=== PATIENT | female | born 1960 | race Caucasian/White ===

== ENCOUNTER 2022-10-22 16:31 | Outpatient (CLI) | payer MEDICARE, MEDICAID, SELFPAY | END 2022-10-22 16:32 | disposition home or self-care (01) | LOC: AMB 10-24 19:09 | PROVIDERS: PCP Surgery; Visit Provider Family Medicine | DX: R45.851 Suicidal ideations (principal) ==

== ENCOUNTER 2024-09-02 18:55 | Outpatient (CLI) | payer MEDICARE, MEDICAID, SELFPAY | END 2024-09-02 18:56 | disposition home or self-care (01) | LOC: AMB 09-03 07:25 | PROVIDERS: PCP Surgery; Visit Provider Emergency Medicine | DX: R06.02 Shortness of breath (principal); R41.82 Altered mental status, unspecified | CPT/HCPCS: A0425; A0427 ==

== ENCOUNTER 2024-09-02 19:34 | Emergency (ER) | payer MEDICARE, MEDICAID, SELFPAY ==
[2024-09-02] VITALS (23 sets, daily range): BP systolic 139–163; BP diastolic 72–119; PULSE 73–115; RESP 8–56; TEMP 36.4; O2SAT 87–100; BMI 41.2
--- OUTSIDE RECORDS SUMMARY | 2024-09-02 19:35 | XMS_ITS | Continuity of Care Document ---
Author Organization [facility] Address [address] [place] [address] Phone Care Team Providers Care Chief Client Officer Name Role Phone Georgi Story Unavailable Unavailable Procedures Procedure Date ACDF - Anterior Cervical Discectomy and Fusion - PA ACDF - Additonal Level - PA PSF, Cervical (Below C2) - PA 0 PSF - Additional Level(s) - PA 20 Posterior Instrumentation, 3-6 Segments - PA Anterior Instrumentation, 2-3 Segments - PA PEEK/ Cage/ Implant, For Interbody Fusio n - PA ACDF - Anterior Cervical Discectomy and Fusion ACDF - Additonal Level(s) PSF, Cervical (Below C2) PSF - Additional Level(s) Anterior Instrumentation, 2-3 Segments A PEEK/ Cage/ Implant, For Interbody Fusio n Posterior Instrumentation, 3-6 Segments Advance Directives Directive Yes / No Effective Date File Name No Information Encounters Encounter Description Practice Location Reason(s) For Visit Diagnoses Date Provider Providers Copied on Encounter [facility] [place], [address], [place], [id number], [place] tel:[phone] [facility] No Information 0 Deisi Laureano. [facility], [address] [place] [address], [address], [place], [address], [place]. tel:[phone] Referring Provider: Rose Galindo, [facility] [address], [place], [address]. tel:[phone] [facility], [address], [place], [place], [id number], [place] tel:[phone] [facility] No Information 0 Mateo Hernandezman. [facility], [address], [place], [address], [place]. tel:[phone] Referring Provider: Rose Galindo, [facility] [address], [place], [address]. tel:[phone] Family History Family Member Type Diagnosis Age At Onset No Information Payers Payer name Insurance type Covered constitution party ID Michaela stone(s) Medicare MB [id number] Medical Assistance [facility] [id number] Social History Type Description Quantity Date Captured Comments Sex Female Smoking Status No Information Chief Complaint And Reason For Visit No Information Reason For Referral Reason For Referral No Information History Of Present Illness Encounter Date Complaint History Of Prese nt Illness No Information Functional Status Date Functional Assessmen t No Information Instructions Date Instruction Additional Infor mation No Information Assessments Type Assessment Date No Information Patient Care Teams Name Effective Dates (start - stop) Status Members No Information
--- OUTSIDE RECORDS SUMMARY | 2024-09-02 19:36 | XMS_ITS | Clinical Summary ---
Author Organization [facility] Address [place], [place] [address] Care Team Providers Care Chicken Hanger Name Role Phone Fernie Garcia MD Unavailable Christiano Bess MD Primary Care Provider Allergies Active Allergy Reactions Criticality Noted Date Comments Driss Inhibitors *Unknown 10/18/2014 Adhesive *Unknown,Rash 10/18/2014 Amlodipine Besylate *Unknown 10/18/2014 Lisinopril *Unknown 10/18/2014 Pollen Extracts *Unknown 10/18/2014 Buprenorphine-Naloxone Nausea And Vomiting,Other - Describe In Comment Field 10/26/2022 Was Loosing Her Teeth while on Suboxone Sulfa (Sulfonamide Antibiotics) Rash 10/18/2014 Sulfasalazine *Unknown 02/14/2012 Zolpidem Tartrate *Unknown 10/18/2014 Medications * This document contains information received from the source organization and may not represent a complete record from that organization. nitroglycerin (NITROSTAT) 0.4 mg sublingual tabletIndications: acute episode of anginal pain Place 1 Tablet (0.4 mg) under the tongue each time if needed for Chest Pain. 30 Tablet 10/31/2022 2:47 PM CDT 3 Active saliva stimulant comb. no.3 spryIndications:dr rivera mouth [place] 1 [place] in mouth every hour if needed (Dry mouth). 44.3 mL 3 03/09/2024 3:37 PM CDT 3 Active albuterol-ipratrop ium (DUONEB) (2.5-0.5 mg) in 3 mL NEBULIZATION solutionIndication s:chronic obstructive pulmonary disease with bronchospasms Inhale 3 mL via a nebulizer 4 times daily if needed for Shortness Of Breath or Wheezing. 180 mL 3 09/02/2023 11:52 AM LIFE ADVISOR 4 Active albuterol 0.083% (2.5 mg/3 mL) neb solutionIndication s:chronic obstructive pulmonary disease Inhale 3 mL (2.5 mg) via a nebulizer every 4 hours if needed for Shortness Of Breath. 180 mL 3 10/12/2023 4:21 PM CDT 4 Active acetaminophen (TYLENOL EXTRA STRGTH) 500 mg tabletIndications: fever,pain Take 2 Tablets (1,000 mg) by mouth three times daily. 180 Tablet 3 11/29/2023 12:43 PM CDT 4 Active albuterol HFA (PRO-AIR; VENTOLIN; PROVENTIL) 90 mcg/actuation inhalerIndications :chronic obstructive pulmonary disease Inhale 2 Puffs by mouth every 4 hours if needed for Shortness Of Breath. 8.5 g 3 12/07/2023 10:21 AM CDT 4 Active wheelchairIndicati ons:mobility As directed 1 Each one time. Indications: mobility 4 Active Walker - 4 wheelsIndications: safe mobility As directed 1 unit one time. Indications: safe mobility 4 Active morphine solutab 20 mg (HOSPICE ONLY)Indications:p ain, dyspnea Open capsule and Take 1 Tablet (20 mg) by mouth every 4 hours if needed for Pain (dyspnea). 20mg description: Pinkish tablet inside pink/clear capsule. CARDED 30 Tablet 12/19/2023 4:22 PM CDT 4 Active carvediloL (Coreg) 12.5 mg tabletIndications: hypertension Take 1 Tablet (12.5 mg) by mouth two times daily. CARDED 60 Tablet 3 12/23/2023 1:04 PM CDT 4 Active furosemide (LASIX) 40 mg tabletIndications: edema Take 1 Tablet (40 mg) by mouth once daily. CARDED 30 Tablet 3 12/23/2023 1:04 PM CDT 4 Active levothyroxine (SYNTHROID) 200 mcg tabletIndications: hypothyroidism Take 1 Tablet (200 mcg) by mouth before breakfast. CARDEd 30 Tablet 3 12/23/2023 1:04 PM CDT 4 Active melatonin 3 mg tabletIndications: insomnia Take 1 Tablet (3 mg) by mouth at bedtime. CARDED 30 Tablet 3 12/23/2023 1:04 PM CDT 4 Active ondansetron (ZOFRAN ODT) 4 mg disintegrating tabletIndications: nausea/emesis Place 1 Tablet (4 mg) on the tongue 2 times daily if needed for Nausea/Vomiti ng. 30 Tablet 3 12/23/2023 1:04 PM CDT 4 Active sennosides-docusat e (SENOKOT S) (8.6-50 mg) tabletIndications: constipation Take 1 Tablet by mouth two times daily. CARDED 60 Tablet 12/23/2023 1:04 PM CDT 4 Active nicotine (NICORETTE) 2 mg gumIndications:Tob acco dependency Chew 1 gum (2 mg) every 2 hours if needed for Nicotine Craving. 100 Each 2 4 Active morphine CONTROLLED RELEASE (MS Contin) 60 mg tabletIndications: severe chronic pain requiring long-term opioid treatment Take 1 Tablet (60 mg) by mouth two times daily. 30 Tablet 03/09/2024 3:37 PM CDT 4 Active LORazepam (ATIVAN) 1 mg tabletIndications: anxiety,dyspnea Take 1 Tablet (1 mg) by mouth two times daily. 30 Tablet 03/09/2024 3:37 PM CDT 4 Active morphine CONTROLLED RELEASE (MS Contin) 30 mg CR tabletIndications: severe chronic pain requiring long-term opioid treatment Take 1 Tablet (30 mg) by mouth two times daily. Indications: severe chronic pain requiring long-term opioid treatment 30 Tablet 03/09/2024 3:37 PM CDT 4 Active Active Problems Problem Noted Date Diagnosed Date ACP (advance care planning) 10/31/2022 Overview (12/24/2023): Patient has identified Health Care Agent(s): Yes Add Health Care Agents: Yes Health Care Agent(s): Primary Health Care Agent: Kaleigh [place] Relationship: Friend Secondary Health Care Agent: Ricky Mcrae Relationship: Friend Conservator: Relationship: Phone: Guardian: Relationship: Phone: Patient has Advance Care Plan Documents (Health Care Directive, POLST): Yes Advance Care Plan Documents: Health Care Directive and POLST Form Patient has identified Specific Treatment Preferences: Yes How have preferences been verified: verbal and POLST Specific Treatment Preferences: a.) Code Status: DNR/ Do Not Attempt Resuscitation - Allow a Natural b.) Goals of Treatment: iii. Comfort-Focused Treatment (Allow Natural ): Relieve pain and suffering through the use of any medication by any route, positioning, wound care and other measures. Use oxygen, suction and manual treatment of airway obstruction as needed for comfort. Patient prefers no transfer to hospital for life-sustaining treatments. Transfer if comfort needs cannot be met in current location. TREATMENT PLAN: Maximize comfort through symptom management. c.) Interventions and Treatments: i. Artificially Administered Nutrition and Hydration: - No artificial nutrition/hydration by tube ii. Antibiotics: - Oral antibiotics only (NO IV/IM) Encounter for admission to hospice care 10/31/19 Overview (10/31/2022): Hospice Physician Narrative Encounter for Discussion of Hospice Care Physician Chart Review: 10/30/2022 Patient: Pedrito Lanier Primary hospice diagnosis: Heart failure with reduced ejection fraction Complicating medical conditions (comorbid/secondary): Hypertensive cardiomyopathy, cervical cord myelopathy, opioid use disorder, depression, anxiety Unrelated Diagnoses: Hypothyroidism, DM2 Uncovered Medications: Aspirin, nwcjnlcf-eeezwfvmrv-hossnbwzu gel (would try formulary alternative), levothyroxine, metformin These unrelated diagnoses and medications do not affect pt's prognosis as they are stable and/or are easily managed and are unrelated to reasons/diagnoses/prognosis for which pt enrolled in hospice, or we have a formulary equivalent we can offer. Physician narrative: Pedrito Lanier is a 62-year-old woman with history of heart failure with reduced ejection fraction due to hypertensive cardiomyopathy, cervical myelopathy resulting in quadriparesis, chronic pain syndrome, opioid use disorder previously maintained on Suboxone. She has a long and complex medical and psychosocial history, with history of opioid dependence (both prescription and heroin) since her early 30s. In February 2020, she developed left-sided arm and leg weakness as well as bilateral arm and leg paresthesias; work-up revealed a cervical cord myelopathy and she underwent decompressive surgery. She underwent rehabilitation and had some improvement in her function. She has been followed closely by addiction medicine for the last few years and did well on Suboxone for some time, but she has recently stopped taking this as she felt the films were causing dental issues. Per review of chart it appears that she has been receiving most of her medical care from addiction medicine services, as the COVID-19 pandemic has made her reluctant to follow-up with primary care or cardiology. She contacted her addiction medicine provider 10/26/2022 and indicated that she was having increasing heart failure symptoms, with increased chest pain, fatigue, dyspnea, and decreased appetite. She has also had some bilateral leg edema and abdominal edema/ascites. She has also noticed that her toes has not been turning blue, which would be consistent with low flow heart failure noted by her cloth tester quality during last follow-up August 2020. Per addiction medicine provider note, she feels he is at the end of life, at peace. She is open to hospice services. On evaluation by hospice admissions nurse today, she is short of breath at rest and goes significantly more dyspneic with any exertion. She is able to walk about 10 feet during the visit before she has to rest. She is having intermittent daily chest pain which is sometimes brought on by exertion but sometimes at rest. She has had some functional decline; 3 to 6 months ago she was still dyspneic on exertion but was able to leave the house for 4 to 5 hours at a time, independent with her ADLs, with a PPS of 70%. At this point she is ambulatory but intermittently requires assistance due to weakness, housebound, independent with ADLs but noting significantly more fatigue especially with dressing, current PPS 50%. 3 to 6 months ago she was eating 2 meals a day; at this point she is mostly eating soup and bites of other food. Her goals of care are for comfort and not treatment of underlying disease. She would like to avoid further ED visits and hospitalizations. Prognosis: Ms. Lanier has heart failure with NYHA class IV symptoms and daily angina. She has had a functional decline as noted above. She likely could be better medically optimized from a heart failure perspective, but does not wish to seek further restorative treatment. If her disease takes its expected course, her prognosis is less than 6 months. Creatinine/GFR: No recent data- no evidence of significant kidney impairment in the chart QTc: No recent data Symptom note: I checked [place] PDMP database for this patient the day prior to admission. In the last year I note that she has received 3 prescriptions for Suboxone from her addiction medicine provider, for appropriate amounts of medication and at appropriate intervals, though I note there are some gaps between her prescriptions. There are no other controlled substance prescriptions recorded. She reports that she last took Suboxone 2 months ago. Some of her pain appears to be anginal in nature, and I started her on nitroglycerin the day of admission, as well as scheduled acetaminophen. She was started on as needed morphine tabs with caution to admission nurse that we will need to closely monitor her supply and use with potential for starting a long-acting medication. I also increased her Lasix to 40 mg/day given her leg edema and abdominal swelling. After discussion with admissions nurse, I elected to defer sending out the rest of the comfort care kit. The patient does not have any other symptomatic needs at this time. Symptom Management Plan: Symptom Plan Comments Pain/Dyspnea Roxanol specific order: 5 mg every hour as needed pain or dyspnea acetaminophen 1000 mg 3 times daily scheduled Nitroglycerin 0.4 mg sublingual as needed chest pain Agitation Anxiety Seizure Constipation senna 1-2 tabs twice daily as needed Secretions Nausea I attest that by signing this document I have composed the above narrative based on my review of this patient's available medical record and discussion with the hospice admission nurse. In my professional judgement, based on illness and decline, this patient is terminally ill and prognosis is less than six months if the disease runs its natural course. David Lockett DO .................... 10/30/2022 7:27 AM Mood disorder 07/21/2020 Cervical cord compression with myelopathy 2019 Herniated cervical disc 03/16/2020 B12 deficiency 03/16/2020 Fecal impaction of colon 03/16/2020 Hiatal hernia 03/07/2018 Asthma 03/07/2018 Hypertensive cardiomyopathy 03/07/2018 COPD (chronic obstructive pulmonary disease) Chronic pain syndrome 03/07/2018 Overview (03/07/2018): Fibromyalgia, DDD of cervical and lumbar spine Hypothyroid 03/07/2018 Restless legs syndrome 03/07/2018 Diabetes mellitus, type 2 03/07/2018 Obstructive sleep apnea 03/07/2018 Ischemic cardiomyopathy 06/15/2016 Varicose veins of bilateral lower extremities with other complications 08/21/2014 Benign essential hypertension 08/21/2014 Chronic venous insufficiency 08/21/2014 Substance use disorder Acute postoperative pain Acute neck pain S/P cervical spinal fusion Resolved Problems Problem Noted Date Diagnosed Date Resolved Date Chest pain 03/07/2018 03/11/2020 Mild persistent asthma 02/14/201203/11 Opioid dependence, continuous 12/26/2023 Immunizations Name Administration Dates Next Due Influenza A (H1N1), Inactivated (Age >=3 Years) 06/11/2009 Influenza Virus, Unspecified 04/26/1995 Influenza, IIV3 (Age >=3 years) 04/10/2013,06/20 Influenza, IIV4 (=>6mos) MDV 04/04/2019,04/14/20 17 Tdap 04/14/2017 Family History Medical History Relation Name Comments Cancer Father Throat and tong ue Cancer Mother Relation Name Status Comments Father Mother Social History Tobacco Use Types Packs/Day Years Used Date Smoking Tobacco: Every Day Cigarettes 0.5 46.1 Started: 1976 Smokeless Tobacco: Never Tobacco Cessation:Ready to Q uit: Not Asked; Counseling Given: Not Answered Alcohol Use Standard Drinks/Week Comments Not Currently 0 (1 standard drink = 0.6 oz pur e alcohol) rarely PHQ-2 Answer Date Recorded PHQ-2 TOTAL SCORE 3 12/01/2022 Social Connections Answer Date Recorded Frequency of Communication with Friends and Fami ly Not on file 12/26/2023 Financial Resource Strain Answer Date R ecorded Difficulty of Paying Living Expenses Not on file 07/09/2021 Difficulty of Paying Living Expenses Not on file 07/09/2021 Comments No Sex and Gender Information Value Date Recorded Sex Assigned at Not on file Legal Sex Female 7:52 AM LIFE ADVISOR Gender Identity Not on file Sexual Orientation Not on file Obstetrics History Last Filed Vital Signs Vital Sign Reading Time Taken Comments Blood Pressure 134/80 12/26/2023 10:51 AM CDT Pulse 70 12/26/2023 10:51 AM CDT Temperature 36.7 C (98 F) 12/23/2023 12:09 PM CDT Respiratory Rate 16 12/23/2023 9:27 AM CDT Oxygen Saturation 97% 12/26/2023 10:51 AM CDT Inhaled Oxygen Concentration - - Weight 70 kg (154 lb 6.4 oz) 12/26/2023 10:51 AM CDT Height 152.4 cm (5') 06/04/2020 1:23 AM LIFE ADVISOR Body Mass Index 30.15 06/04/2020 1:23 AM LIFE ADVISOR Plan of Treatment Health Maintenance Due Date Last Done Comments RSV vaccine for adults or pr egnancy (1 - Risk 60-74 years 1-dose series) 2022 Medical Devices Implanted Type Area Medical Staff Services Manager Device Identifier Shelf Expiration Date Model / Serial / Lot [id number] one Matrix 6cc Hema Dbf Putty Dbm Implanted:Qty: 1 on 03/17/2020 by Rose Galindo MD at [facility] Explanted:at [facility] (Quantity not on file) N/A: Spine Med[employer]onic Spine/Ortho 12/12/2021 [id number] / [id number] / Screw Zevo Shon Sd [id number] Implanted:Qty: 1 on 03/17/2020 by Rose Galindo MD at [facility] N/A: Spine [id number] / / Description:SCREW ZEVO SHON S D [id number] one Matrix 3cc [place] Dbf Putty Dbm Implanted:Qty: 1 on 03/17/2020 by Rose Galindo MD at [facility] Explanted:at [facility] (Quantity not on file) N/A: Spine Med[employer] Spine/Ortho 11/11/2021 [id number] / [id number] / Screw Cerv 3.5x12mm Infinity Multi Axial - [id number] Implanted:Qty: 4 on 03/17/2020 by Rose Galindo MD at [facility] N/A: Spine Med[employer]onic Spine/Ortho [id number] / / Screw Cerv 3.5x14mm Infinity Multi Axial - [id number] Implanted:Qty: 2 on 03/17/2020 by Rose Galindo MD at [facility] N/A: Spine [employer]onic Spine/Ortho [id number] / / Ren Cerv 3.5x40mm Infinity Pre-Cut - [id number] Implanted:Qty: 2 on 03/17/2020 by Rose Galindo MD at [facility] N/A: Spine [employer]onic Spine/Ortho [id number]# / / Set Screw Cerv Infinity Std - [id number] Implanted:Qty: 6 on 03/17/2020 by Rose Galindo MD at [facility] N/A: Spine [employer] Spine/Ortho [id number] / / Spacer Cerv Md 6mm Endoskeleton Tc - [id number] Implanted:Qty: 2 on 03/17/2020 by Rose Galindo MD at [facility] N/A: Spine [employer]onic Spine/Ortho [id number] / / Screw Cerv Ant 4x15mm Zevo Variable Slf Drilling - [id number] Implanted:Qty: 5 on 03/17/2020 by Rose Galindo MD at [facility] N/A: Spine [employer]onic Spine/Ortho [id number] / / Plate Zevo 31mm 2 Lvl Implanted:Qty: 1 on 03/17/2020 by Rose Galindo MD at [facility] N/A: Spine [id number] / / Description:PLATE ZEVO 31MM 2 LVL Insurance MEDICARE PART B HB ONLY MEDICARE PB ONLY MEDICARE PART A HB ONLY Member Subscriber Plan / Payer (Ef fective 2015-Present) Name:Pedrito Lanier Member ID:[id number] Relation to Subscriber:Self Name:Pedrito Lanier Subscriber ID:[id number] Payer ID:Not on file Group ID:Not on file Type:Not on file Address: ATTN: CLAIMS [address] [place], [place] [address] [place] [address] MEDICAID Advance Directives Documents on File Type Date Recorded Patient 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 Estate 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 Expl anation Healthcare Directive 11/09/2022 023 Healthcare Directive 11/03/2022 11:36 AM H CD 4.19.23 POLST 11/01/2022 11:49 AM POLST 4.1 7.23 * DNR (Latest Code Status on File) Date Activated Date Inactivated Comments 10/31/2022 2:11 PM POLST complete d: Yes, Date: 10/31/22 * Full Code Date Activated Date Inactivated Comments 03/11/2020 8:34 PM 03/20/2020 3:04 PM Question Answer Comments Code Status Discussion: Discussed * Full Code Date Activated Date Inactivated Comments 03/08/2018 4:19 PM 03/11/2018 6:10 PM Question Answer Comments Code Status Discussion: Discussed * DNR Date Activated Date Inactivated Comments 03/07/2018 8:58 PM 03/08/2018 4:19 PM Question Answer Comments Code Status Discussion: Discussed * Full Code Date Activated Date Inactivated Comments 07/05/2017 9:36 AM 07/05/2017 12:08 PM Care Teams Chicken Hanger Relationship Specialty Start Date End Date Christiano Bess MD [address] [facility] [place] [address] PCP - General Family Practice 12/27/23 Fernie Garcia MD [address] [address] [place] [address] Psychiatry Addiction Medicine - Preventive Medicine 10/26/22
--- NOTE | 2024-09-02 19:40 | CRLHL7_ITS ---
For Patients: As a result of the Century Cures Act, medical imaging exams and procedure reports are released immediately into your electronic medical record. You may view this report before your referring provider. If you have questions, please contact your health care provider. INDICATION: Shortness of breath. Comparison : 03/07/2018. FINDINGS: Heart size is magnified by the AP technique. When allowing for very light radiographic technique, the lungs are clear. The pulmonary vasculature and pleural surfaces appear normal. The bony thorax appears intact. IMPRESSION: No acute process identified. Dictated by Rome Simons MD @ 09/02/2024 8:30:28 PM (Electronically Signed)
[2024-09-02 19:57] LABS: HCO3 VBG 32 mmol/L (21-28); PCO2 VBG 59 mmHG (40-50); PO2 VBG 34.2 mmHG (25-47); pH VBG 7.345 (7.32-7.43)
[2024-09-02 19:59] LABS: Lactate* 2.5 mmol/L (0.5-1.9)
[2024-09-02] MEDS: FUROSEMIDE 10 MG/ML inj 40 MG IVP (20:18)
[2024-09-02 20:19] LABS: Basophils Percent Auto 0.2 % (0.0-3.0); Eosinophils Percent Auto 0.1 % (0.0-7.0); Hematocrit 52.2 % (33.0-51.0); Hemoglobin* 16.4 gm/dL (12.0-16.0); Immature Granulocytes Pct Auto 1.6 %; Lymphocytes Percent Auto 10.6 % (20-44); Mean Corpuscular HGB Conc 31 gm/dL (32-36); Mean Corpuscular Hemoglobin 30 pg (26-34); Mean Corpuscular Volume 97 fL (80-100); Neutrophils Percent Auto 76.5 % (42.0-72.0); Platelet Count* 172 K/uL (140-440); RDW Coefficient of Variation % 16.3 % (11.5-15.5); White Blood Count* 12.66 K/uL (4.50-11.00)
[2024-09-02 20:25] LABS: INR 1.75 (0.91-1.10); Prothrombin Time 21.7 Seconds
[2024-09-02 20:34] LABS: D Dimer Quantitative* 9.98 ug/ml (0.00-0.50)
[2024-09-02 20:35] LABS: Slide Review Reflex No
--- NOTE | 2024-09-02 20:35 | ED.GENADULT ---
HPI - General Adult General Chief complaint: Shortness of Breath/Dyspnea <Madai Montague MD - Last Filed: 09/02/24 21:10> Stated complaint: Respiratory issues <Madai Montague MD - Last Filed: 09/02/24 21:10> Time Seen by Provider: 09/02/24 19:39 <Madai Montague MD - Last Filed: 09/02/24 21:10> Source: EMS <Madai Montague MD - Last Filed: 09/02/24 21:10> Mode of arrival: EMS <Madai Montague MD - Last Filed: 09/02/24 21:10> Limitations: altered mental status <Madai Montague MD - Last Filed: 09/02/24 21:10> History of Present Illness HPI narrative: 64-year-old female presenting via EMS for altered mental status and hypoxia. Family called the ambulance for the patient who was found with altered mental status and hypoxic in her home. EMS had a difficult time extracting the patient from the home secondary to what they described as a hoarding situation. Patient is able to follow some commands commands and give yes or no answers. Reviewing her medical history patient has a history of congestive heart failure with reduced ejection fraction, hypertensive cardiomyopathy, opioid use disorder, depression, anxiety, hypothyroidism, diabetes type 2, cervical myelopathy resulting in quadriparesis and chronic pain syndrome, asthma, restless legs syndrome, obstructive sleep apnea, ischemic cardiomyopathy, history of non ST elevation [place], fibromyalgia, breast cancer. In 2019 she developed left-sided arm and leg weakness in bilateral arm and leg paresthesia as workup revealed cervical cord myelopathy and she underwent decompressive surgery with some improvement in her function. In 2022 patient was admitted to hospice, discharged from hospice in 2023. At that time she was having daily chest pain, inability to walk more than 10 ft without resting. <Madai Montague MD - Last Filed: 09/02/24 21:10> Related Data Home medications: Home Medications ?Medication ?Instructions ?Recorded ?Confirmed cyclobenzaprine 10 mg tablet 10 mg PO QAM 09/02/24 09/02/24 furosemide .ROUTE 09/02/24 hydroxyzine pamoate .ROUTE 09/02/24 levothyroxine .ROUTE 09/02/24 losartan .ROUTE 09/02/24 nitroglycerin PO 09/02/24 venlafaxine PO 09/02/24 <Madai Montague MD - Last Filed: 09/02/24 21:10> Allergies/adverse reactions: Allergies Allergy/AdvReac Type Severity Reaction Status Date / Time Sulfa (Sulfonamide Allergy Severe Anaphylaxis Verified 09/02/24 21:28 Antibiotics) <Madai Montague MD - Last Filed: 09/02/24 21:10> Review of Systems Status of ROS: Reports: unobtainable due to mental status <Madai Montague MD - Last Filed: 09/02/24 21:10> Exam Narrative: Exam Narrative: Overweight patient in acute respiratory distress. Patient follows some commands and is able to say yes or no to some questions. She is tachypneic and restless. HEENT: Normocephalic atraumatic. Pupils are equally round reactive to light. Extraocular muscles are intact. Conjunctivae are moist without any icterus noted. Very dry mucous membranes. Neck is soft. Cardiovascular: Tachycardic, regular rhythm. Lungs: Decreased breath sounds bilaterally with some wheezing on the right. Bilateral crackles. Abdomen: Soft and nondistended with normal bowel sounds. She has edema of the abdominal wall. Extremities: Bilateral lower extremities show trace pitting edema. Skin: Patient has mottling of the ankles and feet. She has dusky preston discoloration of both hands. <Madai Montague MD - Last Filed: 09/02/24 21:10> Const: Vital Signs, click to edit/add: Vital Signs - 24 hr 09/02/24 19:47 09/02/24 20:23 09/02/24 20:30 Temperature 97.6 F Pulse Rate 99 103 H Pulse Rate [Pulse Oximeter] 102 H Respiratory Rate 26 H 31 H 17 Blood Pressure Blood Pressure [Ri ght Upper Arm] 163/94 H Pulse Oximetry 100 87 L 96 Oxygen Delivery Me thod Nasal Cannula Nasal Cannula Nasal Cannula Oxygen Flow Rate 2 2 2 09/02/24 20:33 09/02/24 20:45 09/02/24 20:46 Temperature Pulse Rate 109 H 106 H 106 H Pulse Rate [Pulse Oximeter] Respiratory Rate 35 H 44 H 17 Blood Pressure 141/100 H 146/119 H Blood Pressure [Ri ght Upper Arm] Pulse Oximetry 93 91 89 Oxygen Delivery Me thod Nasal Cannula Nasal Cannula Nasal Cannula Oxygen Flow Rate 2 2 2 09/02/24 20:47 09/02/24 21:00 09/02/24 21:02 Temperature Pulse Rate 73 111 H Pulse Rate [Pulse Oximeter] Respiratory Rate 56 H 48 H 9 L Blood Pressure 146/99 H Blood Pressure [Ri ght Upper Arm] Pulse Oximetry 94 Oxygen Delivery Me thod Nasal Cannula Nasal Cannula Nasal Cannula Oxygen Flow Rate 2 2 2 09/02/24 21:32 09/02/24 21:34 09/02/24 21:45 Temperature Pulse Rate 115 H Pulse Rate [Pulse Oximeter] Respiratory Rate 32 H 27 H Blood Pressure 139/107 H Blood Pressure [Ri ght Upper Arm] Pulse Oximetry Oxygen Delivery Me thod Nasal Cannula Nasal Cannula Nasal Cannula Oxygen Flow Rate 2 2 2 09/02/24 21:47 09/02/24 22:06 09/02/24 22:36 Temperature Pulse Rate 107 H 104 H 97 Pulse Rate [Pulse Oximeter] Respiratory Rate 8 L Blood Pressure 149/72 H Blood Pressure [Ri ght Upper Arm] Pulse Oximetry 95 88 Oxygen Delivery Me thod Nasal Cannula Nasal Cannula Nasal Cannula Oxygen Flow Rate 2 2 2 09/02/24 22:38 Temperature Pulse Rate 98 Pulse Rate [Pulse Oximeter] Respiratory Rate 22 Blood Pressure 145/95 H Blood Pressure [Ri ght Upper Arm] Pulse Oximetry Oxygen Delivery Me thod Nasal Cannula Oxygen Flow Rate 2 <Madai Montague MD - Last Filed: 09/02/24 21:10> Vital Signs, click to edit/add: Vital Signs - 24 hr 09/02/24 19:47 09/02/24 20:23 09/02/24 20:30 Temperature 97.6 F Pulse Rate 99 103 H Pulse Rate [Pulse Oximeter] 102 H Respiratory Rate 26 H 31 H 17 Blood Pressure Blood Pressure [Ri ght Upper Arm] 163/94 H Pulse Oximetry 100 87 L 96 Oxygen Delivery Me thod Nasal Cannula Nasal Cannula Nasal Cannula Oxygen Flow Rate 2 2 2 09/02/24 20:33 09/02/24 20:45 09/02/24 20:46 Temperature Pulse Rate 109 H 106 H 106 H Pulse Rate [Pulse Oximeter] Respiratory Rate 35 H 44 H 17 Blood Pressure 141/100 H 146/119 H Blood Pressure [Ri ght Upper Arm] Pulse Oximetry 93 91 89 Oxygen Delivery Me thod Nasal Cannula Nasal Cannula Nasal Cannula Oxygen Flow Rate 2 2 2 09/02/24 20:47 09/02/24 21:00 09/02/24 21:02 Temperature Pulse Rate 73 111 H Pulse Rate [Pulse Oximeter] Respiratory Rate 56 H 48 H 9 L Blood Pressure 146/99 H Blood Pressure [Ri ght Upper Arm] Pulse Oximetry 94 Oxygen Delivery Me thod Nasal Cannula Nasal Cannula Nasal Cannula Oxygen Flow Rate 2 2 2 09/02/24 21:32 09/02/24 21:34 09/02/24 21:45 Temperature Pulse Rate 115 H Pulse Rate [Pulse Oximeter] Respiratory Rate 32 H 27 H Blood Pressure 139/107 H Blood Pressure [Ri ght Upper Arm] Pulse Oximetry Oxygen Delivery Me thod Nasal Cannula Nasal Cannula Nasal Cannula Oxygen Flow Rate 2 2 2 09/02/24 21:47 09/02/24 22:06 09/02/24 22:36 Temperature Pulse Rate 107 H 104 H 97 Pulse Rate [Pulse Oximeter] Respiratory Rate 8 L Blood Pressure 149/72 H Blood Pressure [Ri ght Upper Arm] Pulse Oximetry 95 88 Oxygen Delivery Me thod Nasal Cannula Nasal Cannula Nasal Cannula Oxygen Flow Rate 2 2 2 09/02/24 22:38 Temperature Pulse Rate 98 Pulse Rate [Pulse Oximeter] Respiratory Rate 22 Blood Pressure 145/95 H Blood Pressure [Ri ght Upper Arm] Pulse Oximetry Oxygen Delivery Me thod Nasal Cannula Oxygen Flow Rate 2 <Ko Martinez MD - Last Filed: 09/02/24 23:20> Course Course ED Course: EKG, read by me, shows sinus tachycardia with a pulse of 102, right axis deviation with probable right atrial enlargement. Patient is placed on 2 L nasal cannula and oxygen saturation went from the 80s to mid to upper 90s. Patient is not hypotensive. Patient's was prescribed Lasix, not taking it. 40 mg IV given upon arrival. CBC shows a white cell count of 12.6, hemoglobin 16.4, hematocrit 52.2, platelet count 172. VBG shows a pH of 7.34 a CO2 59, O2 34.2, HC03 of 32. Lactate is elevated at 2.5. Point of care troponin slightly up at 0.06. Patient 3rd spacing, intravascularly dry. 250 mL normal saline per hours started. Ertapenem started. Care transferred to onccecilia TORRES. <Madai Montague MD - Last Filed: 09/02/24 21:10> Reevaluation(s) Time of Reevaluation #1: 23:11 <Ko Martinez MD - Last Filed: 09/02/24 23:20> Reevaluation #1: Patient was transferred over to md at 2100, and found her left upper extremity was cold, from the antecubital fossa down, white, I could not find a pulse by either palpable or ultrasound in her left wrist. There is a black left finger, from the DIP flexion crease distally. She also was able to move her hand but it cried out in pain every time she moved it. Her GCS had improved according to my partner and I have now found that her the GCS of 14/15 she was responding, was able to tell me that she did do methamphetamine even know she was urine positive. Due to my concern of limb ischemia I called [facility], unfortunately they were unable to take my patient, I then further called [facility] spoke to Dr. Wright from vascular, Dr. Neumann from Interventional Radiology and Dr. Felix from the ER, we will transfer her by flight, we have heparin running, we have inability year to do a CTA of the extremity. And by the time we call someone in for ultrasound, to do an ultrasound of the extremity, that would be a least a 2 hour turnaround. Given what I see I think time is of the essence and we will send her by flight. <Ko Martinez MD - Last Filed: 09/02/24 23:20> Vital Signs Vital signs: Initial Vital Signs Respiratory Effort Normal, Spontaneous 09/02/24 19:35 Vital Signs Temperature 97.6 F 09/02/24 19:47 Pulse Rate 102 H 09/02/24 19:47 Respiratory Rate 26 H 09/02/24 19:47 Blood Pressure 163/94 H 09/02/24 19:47 Pulse Oximetry 100 09/02/24 19:47 Oxygen Delivery Method Nasal Cannula 09/02/24 19:47 Oxygen Flow Rate 2 09/02/24 19:47 Temperature 97.6 F 09/02/24 19:47 Pulse Rate 98 09/02/24 22:38 Respiratory Rate 22 09/02/24 22:38 Blood Pressure 145/95 H 09/02/24 22:38 Pulse Oximetry 88 09/02/24 22:36 Oxygen Delivery Method Nasal Cannula 09/02/24 22:38 Oxygen Flow Rate 2 09/02/24 22:38 <Madai Montague MD - Last Filed: 09/02/24 21:10> Initial Vital Signs Respiratory Effort Normal, Spontaneous 09/02/24 19:35 Vital Signs Temperature 97.6 F 09/02/24 19:47 Pulse Rate 102 H 09/02/24 19:47 Respiratory Rate 26 H 09/02/24 19:47 Blood Pressure 163/94 H 09/02/24 19:47 Pulse Oximetry 100 09/02/24 19:47 Oxygen Delivery Method Nasal Cannula 09/02/24 19:47 Oxygen Flow Rate 2 09/02/24 19:47 Temperature 97.6 F 09/02/24 19:47 Pulse Rate 98 09/02/24 22:38 Respiratory Rate 22 09/02/24 22:38 Blood Pressure 145/95 H 09/02/24 22:38 Pulse Oximetry 88 09/02/24 22:36 Oxygen Delivery Method Nasal Cannula 09/02/24 22:38 Oxygen Flow Rate 2 09/02/24 22:38 <Ko Martinez MD - Last Filed: 09/02/24 23:20> Medications Administered Medications: Generic Name Dose Route Start Last Admin Trade Name Freq PRN Reason Stop Dose Admin Heparin Sodium (Porcine) 7,300 unit 09/02/24 23:07 09/02/24 23:09 Heparin 5,000 Unit/0.5 Ml Inj 80 unit/kg (7300 unit) 09/02/24 23:08 7,300 unit IVP Administration ONCE ONE Heparin Sodium/Dextrose 25,000 unit in 500 mls @ 0 mls/hr 09/02/24 23:15 09/02/24 23:09 Heparin IV 1,500 unit/hr .Q0M KRYSTAL 30 mls/hr Administration Protocol Per Protocol Morphine Sulfate 4 mg 09/02/24 22:29 09/02/24 22:33 Morphine 4 Mg/Ml Inj IVP 09/02/24 22:30 4 mg ONCE ONE Administration Discontinued Medications Generic Name Dose Route Start Last Admin Trade Name Freq PRN Reason Stop Dose Admin Furosemide 40 mg 09/02/24 20:00 09/02/24 20:18 Furosemide 10 Mg/Ml Inj IVP 09/02/24 20:01 40 mg ONCE ONE Administration Sodium Chloride 250 mls @ 250 mls/hr 09/02/24 20:45 09/02/24 23:01 0.9 % Sodium Chloride 250 Ml IV 09/02/24 21:44 Infused .Q1H ONE Infusion Ertapenem 1 gm/ Sodium 100 mls @ 200 mls/hr 09/02/24 21:06 09/02/24 23:01 Chloride IVPB 09/02/24 21:07 Infused ONCE ONE Infusion <Madai Montague MD - Last Filed: 09/02/24 21:10> Generic Name Dose Route Start Last Admin Trade Name Freq PRN Reason Stop Dose Admin Heparin Sodium (Porcine) 7,300 unit 09/02/24 23:07 09/02/24 23:09 Heparin 5,000 Unit/0.5 Ml Inj 80 unit/kg (7300 unit) 09/02/24 23:08 7,300 unit IVP Administration ONCE ONE Heparin Sodium/Dextrose 25,000 unit in 500 mls @ 0 mls/hr 09/02/24 23:15 09/02/24 23:09 Heparin IV 1,500 unit/hr .Q0M KRYSTAL 30 mls/hr Administration Protocol Per Protocol Morphine Sulfate 4 mg 09/02/24 22:29 09/02/24 22:33 Morphine 4 Mg/Ml Inj IVP 09/02/24 22:30 4 mg ONCE ONE Administration Discontinued Medications Generic Name Dose Route Start Last Admin Trade Name Freq PRN Reason Stop Dose Admin Furosemide 40 mg 09/02/24 20:00 09/02/24 20:18 Furosemide 10 Mg/Ml Inj IVP 09/02/24 20:01 40 mg ONCE ONE Administration Sodium Chloride 250 mls @ 250 mls/hr 09/02/24 20:45 09/02/24 23:01 0.9 % Sodium Chloride 250 Ml IV 09/02/24 21:44 Infused .Q1H ONE Infusion Ertapenem 1 gm/ Sodium 100 mls @ 200 mls/hr 09/02/24 21:06 09/02/24 23:01 Chloride IVPB 09/02/24 21:07 Infused ONCE ONE Infusion <Ko Martinez MD - Last Filed: 09/02/24 23:20> Medical Decision Making MDM Narrative Medical decision making narrative: Do the complications of this patient, I think she is best served at a tertiary care institution and has vascular, and IR capability, along with cardiology for her heart, among other issues. <Ko Martinez MD - Last Filed: 09/02/24 23:20> Medical Records Medical records reviewed: Yes I reviewed the patient's medical records <Ko Martinez MD - Last Filed: 09/02/24 23:20> Lab Data Lab results reviewed: Yes I reviewed the patient's lab results <Ko Martinez MD - Last Filed: 09/02/24 23:20> Labs: Lab Results 09/02/24 09/02/24 09/02/24 Range/Units 19:38 19:40 19:41 WBC (4.50-11.00) K/uL RBC (4.00-5.20) m/uL Hgb (12.0-16.0) gm/dL Hct (33.0-51.0) % MCV (80-100) fL MCH (26-34) pg MCHC (32-36) gm/dL RDW Coeff of Shon (11.5-15.5) % Plt Count (140-440) K/uL Neut % (Auto) (42.0-72.0) % Lymph % (Auto) (20-44) % [place] % (Auto) (0.0-11.0) % Eos % (Auto) (0.0-7.0) % Baso % (Auto) (0.0-3.0) % Neut # (Auto) (1.7-7.0) K/uL Lymph # (Auto) (0.90-2.90) K/uL [place] # (Auto) (0.00-0.90) K/UL Eos # (Auto) (0.00-0.50) K/uL Baso # (Auto) (0.00-0.30) K/uL Abs Immat Gran (auto) (0.00-0.30) K/uL Imm/Tot Granulo (auto) % ESR (2-20) mm/hr INR 1.75 H (0.91-1.10) APTT 28 (23-33) Seconds D-Dimer Quant (PE/DVT) 9.98 H (0.00-0.50) ug/ml VBG pH (7.32-7.43) VBG pCO2 (40-50) mmHG VBG pO2 (25-47) mmHG VBG HCO3 (21-28) mmol/L Sodium (135-149) mmol/L Potassium (3.6-5.1) mmol/L Chloride (96-114) mmol/L Carbon Dioxide (20-32) mmol/L Anion Gap (7-15) mEq/L BUN (7-30) mg/dL Creatinine (0.5-1.5) mg/dL Estimated Creat Clear Estimated GFR ml/min Glucose (60-115) mg/dL Lactate (0.5-1.9) mmol/L Calcium (8.4-10.6) mg/dL Magnesium (1.5-2.6) mg/dL Total Bilirubin (0.1-1.5) mg/dL Direct Bilirubin (0.0-0.5) mg/dL AST (12-35) U/L ALT (4-35) U/L Alkaline Phosphatase (40-150) U/L Troponin I (0.01-0.04) ng/mL C-Reactive Protein (0.5-1.0) mg/dL NT-Pro-B Natriuret Pep pg/mL Total Protein (6.0-8.3) g/dL Albumin (3.3-5.0) g/dL Lipase (23-300) U/L Procalcitonin (<0.50) ng/mL Urine Color (Yellow) Urine Appearance (Clear) Urine pH (5.0-8.5) Ur Specific [place] (1.000-1.030) Urine Protein (Negative) Urine Glucose (UA) (Negative) Urine Ketones (Negative) Urine Blood (Negative) Urine Nitrite (Negative) Urine Bilirubin (Negative) Urine Urobilinogen (0.2-1.0) Ur Leukocyte Esterase (Negative) Urine RBC (0-2) Urine WBC (0-5) Ur Squamous Epith Cells (None-Few) Urine Bacteria (None) Salicylates (1.0-10) mg/dL Urine Opiates Screen (Negative) Ur Oxycodone Screen (Negative) Urine Methadone Screen (Negative) Acetaminophen (10.0-30.0) ug/mL Ur Barbiturates Screen (Negative) U Tricyclic Antidepress (Negative) Ur Phencyclidine Scrn (Negative) Ur Amphetamines Screen (Negative) U Methamphetamines Scrn (Negative) U Benzodiazepines Scrn (Negative) Urine Cocaine Screen (Negative) U Marijuana (THC) Screen (Negative) Ur Drug Screen Comment Ethyl Alcohol (0.01-0.03) % SARS-CoV-2 (PCR) Negative SARS-CoV-2 (Negative) Influenza Type A (PCR) Negative PCR FLU A (Negative) Influenza Type B (PCR) Negative PCR FLU B (Negative) RSV (PCR) Negative PCR RSV (Negative) Lab Acknowledgement POC Creatinine (0.6-1.3) mg/dl POC Troponin I 0.06 H (0.01-0.04) ng/ml 09/02/24 09/02/24 09/02/24 Range/Units 19:50 19:50 20:50 WBC 12.66 H (4.50-11.00) K/uL RBC 5.40 H (4.00-5.20) m/uL Hgb 16.4 H (12.0-16.0) gm/dL Hct 52.2 H (33.0-51.0) % MCV 97 (80-100) fL MCH 30 (26-34) pg MCHC 31 L (32-36) gm/dL RDW Coeff of Shon 16.3 H (11.5-15.5) % Plt Count 172 (140-440) K/uL Neut % (Auto) 76.5 H (42.0-72.0) % Lymph % (Auto) 10.6 L (20-44) % [place] % (Auto) 11.0 (0.0-11.0) % Eos % (Auto) 0.1 (0.0-7.0) % Baso % (Auto) 0.2 (0.0-3.0) % Neut # (Auto) 9.70 H (1.7-7.0) K/uL Lymph # (Auto) 1.30 (0.90-2.90) K/uL [place] # (Auto) 1.40 H (0.00-0.90) K/UL Eos # (Auto) 0.00 (0.00-0.50) K/uL Baso # (Auto) 0.00 (0.00-0.30) K/uL Abs Immat Gran (auto) 0.20 (0.00-0.30) K/uL Imm/Tot Granulo (auto) 1.6 % ESR < 2 L (2-20) mm/hr INR (0.91-1.10) APTT (23-33) Seconds D-Dimer Quant (PE/DVT) (0.00-0.50) ug/ml VBG pH 7.345 (7.32-7.43) VBG pCO2 59 H (40-50) mmHG VBG pO2 34.2 (25-47) mmHG VBG HCO3 32 H (21-28) mmol/L Sodium 139 (135-149) mmol/L Potassium 3.7 (3.6-5.1) mmol/L Chloride 101 (96-114) mmol/L Carbon Dioxide 30 (20-32) mmol/L Anion Gap 8 (7-15) mEq/L BUN 52 H (7-30) mg/dL Creatinine 1.3 (0.5-1.5) mg/dL Estimated Creat Clear 38.75 Estimated GFR 46 ml/min Glucose 238 H (60-115) mg/dL Lactate 2.5 H (0.5-1.9) mmol/L Calcium 9.2 (8.4-10.6) mg/dL Magnesium 2.1 (1.5-2.6) mg/dL Total Bilirubin 2.5 H (0.1-1.5) mg/dL Direct Bilirubin 1.0 H (0.0-0.5) mg/dL AST 1698 H (12-35) U/L ALT 2170 H (4-35) U/L Alkaline Phosphatase 127 (40-150) U/L Troponin I 0.13 H* Cancelled (0.01-0.04) ng/mL C-Reactive Protein 5.9 H (0.5-1.0) mg/dL NT-Pro-B Natriuret Pep 67804 pg/mL Total Protein 6.7 (6.0-8.3) g/dL Albumin 3.9 (3.3-5.0) g/dL Lipase 76 (23-300) U/L Procalcitonin 1.35 H (<0.50) ng/mL Urine Color (Yellow) Urine Appearance (Clear) Urine pH (5.0-8.5) Ur Specific [place] (1.000-1.030) Urine Protein (Negative) Urine Glucose (UA) (Negative) Urine Ketones (Negative) Urine Blood (Negative) Urine Nitrite (Negative) Urine Bilirubin (Negative) Urine Urobilinogen (0.2-1.0) Ur Leukocyte Esterase (Negative) Urine RBC (0-2) Urine WBC (0-5) Ur Squamous Epith Cells (None-Few) Urine Bacteria (None) Salicylates < 1.0 L (1.0-10) mg/dL Urine Opiates Screen (Negative) Ur Oxycodone Screen (Negative) Urine Methadone Screen (Negative) Acetaminophen < 10.0 L (10.0-30.0) ug/mL Ur Barbiturates Screen (Negative) U Tricyclic Antidepress (Negative) Ur Phencyclidine Scrn (Negative) Ur Amphetamines Screen (Negative) U Methamphetamines Scrn (Negative) U Benzodiazepines Scrn (Negative) Urine Cocaine Screen (Negative) U Marijuana (THC) Screen (Negative) Ur Drug Screen Comment Ethyl Alcohol < 0.01 L (0.01-0.03) % SARS-CoV-2 (PCR) (Negative) Influenza Type A (PCR) (Negative) Influenza Type B (PCR) (Negative) RSV (PCR) (Negative) Lab Acknowledgement POC Creatinine 1.6 H (0.6-1.3) mg/dl POC Troponin I (0.01-0.04) ng/ml 09/02/24 09/02/24 09/02/24 Range/Units 21:00 22:12 22:14 WBC (4.50-11.00) K/uL RBC (4.00-5.20) m/uL Hgb (12.0-16.0) gm/dL Hct (33.0-51.0) % MCV (80-100) fL MCH (26-34) pg MCHC (32-36) gm/dL RDW Coeff of Shon (11.5-15.5) % Plt Count (140-440) K/uL Neut % (Auto) (42.0-72.0) % Lymph % (Auto) (20-44) % [place] % (Auto) (0.0-11.0) % Eos % (Auto) (0.0-7.0) % Baso % (Auto) (0.0-3.0) % Neut # (Auto) (1.7-7.0) K/uL Lymph # (Auto) (0.90-2.90) K/uL [place] # (Auto) (0.00-0.90) K/UL Eos # (Auto) (0.00-0.50) K/uL Baso # (Auto) (0.00-0.30) K/uL Abs Immat Gran (auto) (0.00-0.30) K/uL Imm/Tot Granulo (auto) % ESR (2-20) mm/hr INR (0.91-1.10) APTT (23-33) Seconds D-Dimer Quant (PE/DVT) (0.00-0.50) ug/ml VBG pH (7.32-7.43) VBG pCO2 (40-50) mmHG VBG pO2 (25-47) mmHG VBG HCO3 (21-28) mmol/L Sodium (135-149) mmol/L Potassium (3.6-5.1) mmol/L Chloride (96-114) mmol/L Carbon Dioxide (20-32) mmol/L Anion Gap (7-15) mEq/L BUN (7-30) mg/dL Creatinine (0.5-1.5) mg/dL Estimated Creat Clear Estimated GFR ml/min Glucose (60-115) mg/dL Lactate (0.5-1.9) mmol/L Calcium (8.4-10.6) mg/dL Magnesium (1.5-2.6) mg/dL Total Bilirubin (0.1-1.5) mg/dL Direct Bilirubin (0.0-0.5) mg/dL AST (12-35) U/L ALT (4-35) U/L Alkaline Phosphatase (40-150) U/L Troponin I 0.13 H* (0.01-0.04) ng/mL C-Reactive Protein (0.5-1.0) mg/dL NT-Pro-B Natriuret Pep pg/mL Total Protein (6.0-8.3) g/dL Albumin (3.3-5.0) g/dL Lipase (23-300) U/L Procalcitonin (<0.50) ng/mL Urine Color Yellow (Yellow) Urine Appearance Clear (Clear) Urine pH 6.0 (5.0-8.5) Ur Specific [place] 1.020 (1.000-1.030) Urine Protein 2+ A (Negative) Urine Glucose (UA) Trace A (Negative) Urine Ketones Negative (Negative) Urine Blood 2+ A (Negative) Urine Nitrite Negative (Negative) Urine Bilirubin Negative (Negative) Urine Urobilinogen 0.2 (0.2-1.0) Ur Leukocyte Esterase Negative (Negative) Urine RBC 2-5 A (0-2) Urine WBC 2-5 (0-5) Ur Squamous Epith Cells Few (None-Few) Urine Bacteria Few A (None) Salicylates (1.0-10) mg/dL Urine Opiates Screen Negative (Negative) Ur Oxycodone Screen Negative (Negative) Urine Methadone Screen POSITIVE A (Negative) Acetaminophen (10.0-30.0) ug/mL Ur Barbiturates Screen Negative (Negative) U Tricyclic Antidepress Negative (Negative) Ur Phencyclidine Scrn Negative (Negative) Ur Amphetamines Screen POSITIVE A (Negative) U Methamphetamines Scrn POSITIVE A (Negative) U Benzodiazepines Scrn Negative (Negative) Urine Cocaine Screen Negative (Negative) U Marijuana (THC) Screen Negative (Negative) Ur Drug Screen Comment See Note Ethyl Alcohol (0.01-0.03) % SARS-CoV-2 (PCR) (Negative) Influenza Type A (PCR) (Negative) Influenza Type B (PCR) (Negative) RSV (PCR) (Negative) Lab Acknowledgement Test Added POC Creatinine (0.6-1.3) mg/dl POC Troponin I (0.01-0.04) ng/ml <Madai Montague MD - Last Filed: 09/02/24 21:10> Lab Results 09/02/24 09/02/24 09/02/24 Range/Units 19:38 19:40 19:41 WBC (4.50-11.00) K/uL RBC (4.00-5.20) m/uL Hgb (12.0-16.0) gm/dL Hct (33.0-51.0) % MCV (80-100) fL MCH (26-34) pg MCHC (32-36) gm/dL RDW Coeff of Shon (11.5-15.5) % Plt Count (140-440) K/uL Neut % (Auto) (42.0-72.0) % Lymph % (Auto) (20-44) % [place] % (Auto) (0.0-11.0) % Eos % (Auto) (0.0-7.0) % Baso % (Auto) (0.0-3.0) % Neut # (Auto) (1.7-7.0) K/uL Lymph # (Auto) (0.90-2.90) K/uL [place] # (Auto) (0.00-0.90) K/UL Eos # (Auto) (0.00-0.50) K/uL Baso # (Auto) (0.00-0.30) K/uL Abs Immat Gran (auto) (0.00-0.30) K/uL Imm/Tot Granulo (auto) % ESR (2-20) mm/hr INR 1.75 H (0.91-1.10) APTT 28 (23-33) Seconds D-Dimer Quant (PE/DVT) 9.98 H (0.00-0.50) ug/ml VBG pH (7.32-7.43) VBG pCO2 (40-50) mmHG VBG pO2 (25-47) mmHG VBG HCO3 (21-28) mmol/L Sodium (135-149) mmol/L Potassium (3.6-5.1) mmol/L Chloride (96-114) mmol/L Carbon Dioxide (20-32) mmol/L Anion Gap (7-15) mEq/L BUN (7-30) mg/dL Creatinine (0.5-1.5) mg/dL Estimated Creat Clear Estimated GFR ml/min Glucose (60-115) mg/dL Lactate (0.5-1.9) mmol/L Calcium (8.4-10.6) mg/dL Magnesium (1.5-2.6) mg/dL Total Bilirubin (0.1-1.5) mg/dL Direct Bilirubin (0.0-0.5) mg/dL AST (12-35) U/L ALT (4-35) U/L Alkaline Phosphatase (40-150) U/L Troponin I (0.01-0.04) ng/mL C-Reactive Protein (0.5-1.0) mg/dL NT-Pro-B Natriuret Pep pg/mL Total Protein (6.0-8.3) g/dL Albumin (3.3-5.0) g/dL Lipase (23-300) U/L Procalcitonin (<0.50) ng/mL Urine Color (Yellow) Urine Appearance (Clear) Urine pH (5.0-8.5) Ur Specific [place] (1.000-1.030) Urine Protein (Negative) Urine Glucose (UA) (Negative) Urine Ketones (Negative) Urine Blood (Negative) Urine Nitrite (Negative) Urine Bilirubin (Negative) Urine Urobilinogen (0.2-1.0) Ur Leukocyte Esterase (Negative) Urine RBC (0-2) Urine WBC (0-5) Ur Squamous Epith Cells (None-Few) Urine Bacteria (None) Salicylates (1.0-10) mg/dL Urine Opiates Screen (Negative) Ur Oxycodone Screen (Negative) Urine Methadone Screen (Negative) Acetaminophen (10.0-30.0) ug/mL Ur Barbiturates Screen (Negative) U Tricyclic Antidepress (Negative) Ur Phencyclidine Scrn (Negative) Ur Amphetamines Screen (Negative) U Methamphetamines Scrn (Negative) U Benzodiazepines Scrn (Negative) Urine Cocaine Screen (Negative) U Marijuana (THC) Screen (Negative) Ur Drug Screen Comment Ethyl Alcohol (0.01-0.03) % SARS-CoV-2 (PCR) Negative SARS-CoV-2 (Negative) Influenza Type A (PCR) Negative PCR FLU A (Negative) Influenza Type B (PCR) Negative PCR FLU B (Negative) RSV (PCR) Negative PCR RSV (Negative) Lab Acknowledgement POC Creatinine (0.6-1.3) mg/dl POC Troponin I 0.06 H (0.01-0.04) ng/ml 09/02/24 09/02/24 09/02/24 Range/Units 19:50 19:50 20:50 WBC 12.66 H (4.50-11.00) K/uL RBC 5.40 H (4.00-5.20) m/uL Hgb 16.4 H (12.0-16.0) gm/dL Hct 52.2 H (33.0-51.0) % MCV 97 (80-100) fL MCH 30 (26-34) pg MCHC 31 L (32-36) gm/dL RDW Coeff of Shon 16.3 H (11.5-15.5) % Plt Count 172 (140-440) K/uL Neut % (Auto) 76.5 H (42.0-72.0) % Lymph % (Auto) 10.6 L (20-44) % [place] % (Auto) 11.0 (0.0-11.0) % Eos % (Auto) 0.1 (0.0-7.0) % Baso % (Auto) 0.2 (0.0-3.0) % Neut # (Auto) 9.70 H (1.7-7.0) K/uL Lymph # (Auto) 1.30 (0.90-2.90) K/uL [place] # (Auto) 1.40 H (0.00-0.90) K/UL Eos # (Auto) 0.00 (0.00-0.50) K/uL Baso # (Auto) 0.00 (0.00-0.30) K/uL Abs Immat Gran (auto) 0.20 (0.00-0.30) K/uL Imm/Tot Granulo (auto) 1.6 % ESR < 2 L (2-20) mm/hr INR (0.91-1.10) APTT (23-33) Seconds D-Dimer Quant (PE/DVT) (0.00-0.50) ug/ml VBG pH 7.345 (7.32-7.43) VBG pCO2 59 H (40-50) mmHG VBG pO2 34.2 (25-47) mmHG VBG HCO3 32 H (21-28) mmol/L Sodium 139 (135-149) mmol/L Potassium 3.7 (3.6-5.1) mmol/L Chloride 101 (96-114) mmol/L Carbon Dioxide 30 (20-32) mmol/L Anion Gap 8 (7-15) mEq/L BUN 52 H (7-30) mg/dL Creatinine 1.3 (0.5-1.5) mg/dL Estimated Creat Clear 38.75 Estimated GFR 46 ml/min Glucose 238 H (60-115) mg/dL Lactate 2.5 H (0.5-1.9) mmol/L Calcium 9.2 (8.4-10.6) mg/dL Magnesium 2.1 (1.5-2.6) mg/dL Total Bilirubin 2.5 H (0.1-1.5) mg/dL Direct Bilirubin 1.0 H (0.0-0.5) mg/dL AST 1698 H (12-35) U/L ALT 2170 H (4-35) U/L Alkaline Phosphatase 127 (40-150) U/L Troponin I 0.13 H* Cancelled (0.01-0.04) ng/mL C-Reactive Protein 5.9 H (0.5-1.0) mg/dL NT-Pro-B Natriuret Pep 95380 pg/mL Total Protein 6.7 (6.0-8.3) g/dL Albumin 3.9 (3.3-5.0) g/dL Lipase 76 (23-300) U/L Procalcitonin 1.35 H (<0.50) ng/mL Urine Color (Yellow) Urine Appearance (Clear) Urine pH (5.0-8.5) Ur Specific [place] (1.000-1.030) Urine Protein (Negative) Urine Glucose (UA) (Negative) Urine Ketones (Negative) Urine Blood (Negative) Urine Nitrite (Negative) Urine Bilirubin (Negative) Urine Urobilinogen (0.2-1.0) Ur Leukocyte Esterase (Negative) Urine RBC (0-2) Urine WBC (0-5) Ur Squamous Epith Cells (None-Few) Urine Bacteria (None) Salicylates < 1.0 L (1.0-10) mg/dL Urine Opiates Screen (Negative) Ur Oxycodone Screen (Negative) Urine Methadone Screen (Negative) Acetaminophen < 10.0 L (10.0-30.0) ug/mL Ur Barbiturates Screen (Negative) U Tricyclic Antidepress (Negative) Ur Phencyclidine Scrn (Negative) Ur Amphetamines Screen (Negative) U Methamphetamines Scrn (Negative) U Benzodiazepines Scrn (Negative) Urine Cocaine Screen (Negative) U Marijuana (THC) Screen (Negative) Ur Drug Screen Comment Ethyl Alcohol < 0.01 L (0.01-0.03) % SARS-CoV-2 (PCR) (Negative) Influenza Type A (PCR) (Negative) Influenza Type B (PCR) (Negative) RSV (PCR) (Negative) Lab Acknowledgement POC Creatinine 1.6 H (0.6-1.3) mg/dl POC Troponin I (0.01-0.04) ng/ml 09/02/24 09/02/24 09/02/24 Range/Units 21:00 22:12 22:14 WBC (4.50-11.00) K/uL RBC (4.00-5.20) m/uL Hgb (12.0-16.0) gm/dL Hct (33.0-51.0) % MCV (80-100) fL MCH (26-34) pg MCHC (32-36) gm/dL RDW Coeff of Shon (11.5-15.5) % Plt Count (140-440) K/uL Neut % (Auto) (42.0-72.0) % Lymph % (Auto) (20-44) % [place] % (Auto) (0.0-11.0) % Eos % (Auto) (0.0-7.0) % Baso % (Auto) (0.0-3.0) % Neut # (Auto) (1.7-7.0) K/uL Lymph # (Auto) (0.90-2.90) K/uL [place] # (Auto) (0.00-0.90) K/UL Eos # (Auto) (0.00-0.50) K/uL Baso # (Auto) (0.00-0.30) K/uL Abs Immat Gran (auto) (0.00-0.30) K/uL Imm/Tot Granulo (auto) % ESR (2-20) mm/hr INR (0.91-1.10) APTT (23-33) Seconds D-Dimer Quant (PE/DVT) (0.00-0.50) ug/ml VBG pH (7.32-7.43) VBG pCO2 (40-50) mmHG VBG pO2 (25-47) mmHG VBG HCO3 (21-28) mmol/L Sodium (135-149) mmol/L Potassium (3.6-5.1) mmol/L Chloride (96-114) mmol/L Carbon Dioxide (20-32) mmol/L Anion Gap (7-15) mEq/L BUN (7-30) mg/dL Creatinine (0.5-1.5) mg/dL Estimated Creat Clear Estimated GFR ml/min Glucose (60-115) mg/dL Lactate (0.5-1.9) mmol/L Calcium (8.4-10.6) mg/dL Magnesium (1.5-2.6) mg/dL Total Bilirubin (0.1-1.5) mg/dL Direct Bilirubin (0.0-0.5) mg/dL AST (12-35) U/L ALT (4-35) U/L Alkaline Phosphatase (40-150) U/L Troponin I 0.13 H* (0.01-0.04) ng/mL C-Reactive Protein (0.5-1.0) mg/dL NT-Pro-B Natriuret Pep pg/mL Total Protein (6.0-8.3) g/dL Albumin (3.3-5.0) g/dL Lipase (23-300) U/L Procalcitonin (<0.50) ng/mL Urine Color Yellow (Yellow) Urine Appearance Clear (Clear) Urine pH 6.0 (5.0-8.5) Ur Specific [place] 1.020 (1.000-1.030) Urine Protein 2+ A (Negative) Urine Glucose (UA) Trace A (Negative) Urine Ketones Negative (Negative) Urine Blood 2+ A (Negative) Urine Nitrite Negative (Negative) Urine Bilirubin Negative (Negative) Urine Urobilinogen 0.2 (0.2-1.0) Ur Leukocyte Esterase Negative (Negative) Urine RBC 2-5 A (0-2) Urine WBC 2-5 (0-5) Ur Squamous Epith Cells Few (None-Few) Urine Bacteria Few A (None) Salicylates (1.0-10) mg/dL Urine Opiates Screen Negative (Negative) Ur Oxycodone Screen Negative (Negative) Urine Methadone Screen POSITIVE A (Negative) Acetaminophen (10.0-30.0) ug/mL Ur Barbiturates Screen Negative (Negative) U Tricyclic Antidepress Negative (Negative) Ur Phencyclidine Scrn Negative (Negative) Ur Amphetamines Screen POSITIVE A (Negative) U Methamphetamines Scrn POSITIVE A (Negative) U Benzodiazepines Scrn Negative (Negative) Urine Cocaine Screen Negative (Negative) U Marijuana (THC) Screen Negative (Negative) Ur Drug Screen Comment See Note Ethyl Alcohol (0.01-0.03) % SARS-CoV-2 (PCR) (Negative) Influenza Type A (PCR) (Negative) Influenza Type B (PCR) (Negative) RSV (PCR) (Negative) Lab Acknowledgement Test Added POC Creatinine (0.6-1.3) mg/dl POC Troponin I (0.01-0.04) ng/ml <Ko Martinez MD - Last Filed: 09/02/24 23:20> Imaging Data CT Chest/Ab/Pelvis: Attestation: I have reviewed the pertinent imaging results. <Ko Martinez MD - Last Filed: 09/02/24 23:20> Radiologist's impression: [place] [address] Diagnostic Imaging Report Patient: Pedrito Lanier MR#: [id number] : 1960 Acct:[id number] Loc: ED Service Date: 09/02/[address]: Ordering Physician: Ko Martinez M.D. Date of Service: 09/02/24 Procedure(s): CT head/brain wo con Accession Number(s): [id number] cc: Jak Freeman M.D.; Ko Martinez M.D.~ For Patients: As a result of the Century Cures Act, medical imaging exams and procedure reports are released immediately into your electronic medical record. You may view this report before your referring provider. If you have questions, please contact your health care provider. Indication: Fall, concern for bleed Technique: Noncontrast CT through the head with multiplanar reformats Comparison: CT head performed 02/26/2020 Findings: Portions of the anatomy are obscured from streak artifact. Additionally, the presence of previously administered IV contrast reduces sensitivity for pathologic detection, particularly for subarachnoid hemorrhage. Brain: No acute hemorrhage. No acute infarct. No significant mass effect or midline shift. No gross evidence of a mass lesion or cerebral edema. Mild chronic microvascular ischemic disease. Chronic appearing left occipital hypodensity. Ventricles: No acute abnormality appreciated. Orbits, sinuses, mastoids: No acute abnormality appreciated. Mild sinus disease. Calvarium and soft tissues: No acute abnormality appreciated. Impression: Examination is degraded by streak artifact as well as previously administered intravenous contrast. Allowing for these limitations, no acute abnormality is appreciated. Please note that all CT scans at this facility use dose modulation, iterative reconstruction, and/or weight-based dosing when appropriate to reduce radiation dose to as low as reasonably achievable. Dictated by Kyle Ken MD @ 09/02/2024 10:43:[address] [address] Diagnostic Imaging Report Patient: Pedrito Lanier MR#: [id number] : 1960 Acct:[id number] Loc: ED Service Date: 09/02/[address]: Ordering Physician: Ko Martinez M.D. Date of Service: 09/02/24 Procedure(s): CT abdomen pelvis wo con Accession Number(s): [id number] cc: Jak Freeman M.D.; Ko Martinez M.D.~ For Patients: As a result of the Cures Act, medical imaging exams and procedure reports are released immediately into your electronic medical record. You may view this report before your referring provider. If you have questions, please contact your health care provider. INDICATION: Elevated liver enzymes, abdominal pain. TECHNIQUE: CT abdomen and pelvis without contrast. COMPARISON: None. FINDINGS: Evaluation of the upper abdomen is limited by patient motion. Within these limits: Lower chest: Cardiomegaly. Mild subsegmental atelectasis. Liver: Limited evaluation in the absence of IV contrast. Within these limits: Unremarkable hepatic parenchymal attenuation. No suspicious focal lesions. Gallbladder and bile ducts: No stones or inflammation. No biliary dilatation. Pancreas: Unremarkable. No mass or inflammation. Spleen: Normal in size. No masses. Adrenal glands: Normal in size. No nodules. Kidneys: Normal in size. Left renal cysts. No suspicious masses, stones, or hydronephrosis. GI tract: Small hiatal hernia. Normal in caliber. No sign of mass or inflammation. No definite secondary signs of appendicitis. Vasculature: Abdominal aorta is normal in caliber. Lymph nodes: No lymphadenopathy. Peritoneum/Abdominal Wall: Anasarca. No pneumoperitoneum. Trace peritoneal free fluid seen most prominently in the dependent pelvis. Pelvis: Bladder is unremarkable. Reproductive organs are unremarkable. Bones: No acute or suspicious lesions. IMPRESSION: Limited evaluation given the absence of IV contrast and patient motion in the upper abdomen. Within these limits: No definite acute or suspicious findings. Please note that all CT scans at this facility use dose modulation, iterative reconstruction, and/or weight-based dosing when appropriate to reduce radiation dose to as low as reasonably achievable. Dictated by Brian Small MD @ 09/02/2024 10:36:[address] [address] Diagnostic Imaging Report Patient: Pedrito Lanier MR#: [id number] : 1960 Acct:[id number] Loc: ED Service Date: 09/02/[address]: Ordering Physician: Madai Montague M.D. Date of Service: 09/02/24 Procedure(s): CT angio chest PE protocol Accession Number(s): [id number] cc: Jak Freeman M.D.; Madai Montague M.D.~ For Patients: As a result of the Cures Act, medical imaging exams and procedure reports are released immediately into your electronic medical record. You may view this report before your referring provider. If you have questions, please contact your health care provider. INDICATION: SOB. TECHNIQUE: CT chest PE was acquired with 95 cc Isovue 370 IV contrast. COMPARISON: None. FINDINGS: Heart and vasculature: Contrast opacification of the pulmonary arterial tree is adequate. No sign of pulmonary embolism. Cardiomegaly. Thoracic aorta and pulmonary artery are normal in caliber. Atherosclerotic calcifications of the aorta and branch vessels. Atherosclerotic calcifications of the coronary arteries Lungs and pleura: No suspicious nodules or infiltrates. Mild subsegmental atelectasis. No pleural effusions, pleural thickening, or pneumothorax. Lymph nodes/mediastinum: No mediastinal, hilar, or axillary adenopathy. Chest wall: No masses. Upper abdomen: No acute or significant findings. Diffuse body wall edema. Small hiatal hernia. Bones: No acute or suspicious lesions. Partially visualized ACDF hardware. IMPRESSION: No acute findings. Specifically, no evidence of pulmonary embolism. No evidence of pneumonia. Please note that all CT scans at this facility use dose modulation, iterative reconstruction, and/or weight-based dosing when appropriate to reduce radiation dose to as low as reasonably achievable. Dictated by Brian Small MD @ 09/02/2024 9:53:24 PM (Electronically Signed)[address] [address] Diagnostic Imaging Report Patient: Pedrito Lanier MR#: [id number] : 1960 Acct:[id number] Loc: ED Service Date: 09/02/[address]: Ordering Physician: Madai Montague M.D. Date of Service: 09/02/24 Procedure(s): XR chest 1V portable Accession Number(s): [id number] cc: Jak Freeman M.D.; Madai Montague M.D.~ For Patients: As a result of the Cures Act, medical imaging exams and procedure reports are released immediately into your electronic medical record. You may view this report before your referring provider. If you have questions, please contact your health care provider. INDICATION: Shortness of breath. Comparison : 03/07/2018. FINDINGS: Heart size is magnified by the AP technique. When allowing for very light radiographic technique, the lungs are clear. The pulmonary vasculature and pleural surfaces appear normal. The bony thorax appears intact. IMPRESSION: No acute process identified. Dictated by Rome Simons MD @ 09/02/2024 8:30:28 PM (Electronically Signed) <Ko Martinez MD - Last Filed: 09/02/24 23:20> ECG Data Attestation: I personally reviewed and interpreted this ECG as follows: <Ko Martinez MD - Last Filed: 09/02/24 23:20> Prior ECG tracings: not available for review <Ko Martinez MD - Last Filed: 09/02/24 23:20> Critical Care Time Critical Care Time Critical Care Time: Yes Attestation: The patient required my highest level preparedness to intervene emergently and I personally spent this critical care time directly and personally managing the patient. This critical care time included: Obtaining a history; Examining the patient; Pulse oximetry; Ordering and reviewing of studies; Arranging urgent treatment with development of a management plan; Evaluation of patients response to treatment; Frequent reassessment discussions with other providers. This critical care time was performed to assess and manage the high probability of imminent life-threatening deterioration that could result in multiorgan failure. It was exclusive of separate billable procedures and treating other patients and teaching time. <Ko Martinez MD - Last Filed: 09/02/24 23:20> Total Critical Care Time in Minutes: 60 <Ko Martinez MD - Last Filed: 09/02/24 23:20> Discharge Plan Discharge Clinical Impression: Limb ischemia, Congestive heart failure, Elevated liver enzymes, Methamphetamine use <Madai Montague MD - Last Filed: 09/02/24 21:10> Patient Disposition: Alejo Mendoza <Madai Montague MD - Last Filed: 09/02/24 21:10> Condition: Critical <Madai Montague MD - Last Filed: 09/02/24 21:10> Prescriptions: No Action hydroxyzine pamoate .ROUTE cyclobenzaprine 10 mg tablet 10 mg PO QAM nitroglycerin PO venlafaxine PO levothyroxine .ROUTE losartan .ROUTE furosemide [Lasix] .ROUTE <Madai Montague MD - Last Filed: 09/02/24 21:10> Follow Up/Referrals: Jak Freeman MD [Primary Care Provider] - <Madai Montague MD - Last Filed: 09/02/24 21:10> Stand Alone Forms: MyHealth Info Instructions <Madai Montague MD - Last Filed: 09/02/24 21:10>
[2024-09-02 20:43] LABS: Troponin, Point-of-Care* 0.06 ng/ml (0.01-0.04)
--- NOTE | 2024-09-02 20:49 | CRLHL7_ITS ---
For Patients: As a result of the Century Cures Act, medical imaging exams and procedure reports are released immediately into your electronic medical record. You may view this report before your referring provider. If you have questions, please contact your health care provider. INDICATION: SOB. TECHNIQUE: CT chest PE was acquired with 95 cc Isovue 370 IV contrast. COMPARISON: None. FINDINGS: Heart and vasculature: Contrast opacification of the pulmonary arterial tree is adequate. No sign of pulmonary embolism. Cardiomegaly. Thoracic aorta and pulmonary artery are normal in caliber. Atherosclerotic calcifications of the aorta and branch vessels. Atherosclerotic calcifications of the coronary arteries Lungs and pleura: No suspicious nodules or infiltrates. Mild subsegmental atelectasis. No pleural effusions, pleural thickening, or pneumothorax. Lymph nodes/mediastinum: No mediastinal, hilar, or axillary adenopathy. Chest wall: No masses. Upper abdomen: No acute or significant findings. Diffuse body wall edema. Small hiatal hernia. Bones: No acute or suspicious lesions. Partially visualized ACDF hardware. IMPRESSION: No acute findings. Specifically, no evidence of pulmonary embolism. No evidence of pneumonia. Please note that all CT scans at this facility use dose modulation, iterative reconstruction, and/or weight-based dosing when appropriate to reduce radiation dose to as low as reasonably achievable. Dictated by Brian Small MD @ 09/02/2024 9:53:24 PM (Electronically Signed)
[2024-09-02 20:51] LABS: Creatinine, Point-of-Care* 1.6 mg/dl (0.6-1.3)
[2024-09-02 20:54] LABS: Albumin* 3.9 g/dL (3.3-5.0); Chloride* 101 mmol/L (96-114); Sodium* 139 mmol/L (135-149)
[2024-09-02 20:55] LABS: Potassium* 3.7 mmol/L (3.6-5.1)
[2024-09-02 20:57] LABS: Alkaline Phosphatase* 127 U/L (40-150); Anion Gap 8 mEq/L (7-15); Bilirubin Total* 2.5 mg/dL (0.1-1.5); Blood Urea Nitrogen* 52 mg/dL (7-30); Carbon Dioxide* 30 mmol/L (20-32); Creatinine* 1.3 mg/dL (0.5-1.5); Est. Creatinine Clearance* 38.75; Estimated Glomerular Filt Rate 46 ml/min; Total Protein* 6.7 g/dL (6.0-8.3)
[2024-09-02 20:58] LABS: Calcium* 9.2 mg/dL (8.4-10.6); Glucose* 238 mg/dL (60-115); Lipase* 76 U/L (23-300); Magnesium* 2.1 mg/dL (1.5-2.6); Salicylate* < 1.0 mg/dL (1.0-10)
[2024-09-02 21:00] LABS: C Reactive Protein* 5.9 mg/dL (0.5-1.0)
[2024-09-02 21:03] LABS: Acetaminophen* < 10.0 ug/mL (10.0-30.0)
[2024-09-02 21:04] LABS: Ethanol* < 0.01 % (0.01-0.03)
[2024-09-02 21:07] LABS: Alanine Aminotransferase* 2170 U/L (4-35); NT Pro B Type NatriureticPept* 23400 pg/mL
--- OUTSIDE RECORDS SUMMARY | 2024-09-02 21:07 | XMS_ITS | Clinical Summary ---
Author Organization [facility] Address [place], [place] [address] Care Team Providers Care Architectural Engineering Teacher Name Role Phone Fernie Garcia MD Unavailable [...] saliva stimulant comb. no.3 spryIndications:dr rivera mouth [place] 1 [place] in mouth every hour if needed (Dry mouth). 44.3 mL 3 03/09/2024 3:37 PM CDT 3 Active albuterol-ipratrop ium (DUONEB) (2.5-0.5 mg) in 3 mL NEBULIZATION solutionIndication s:chronic obstructive pulmonary disease with bronchospasms Inhale 3 mL via a nebulizer 4 times daily if needed for Shortness Of Breath or Wheezing. 180 mL 3 09/02/2023 11:52 AM OPER[employer] 4 Active albuterol 0.083% (2.5 mg/3 mL) [...] Unrelated Diagnoses: Hypothyroidism, DM2 Uncovered Medications: Aspirin, uibgdxkj-ulfljxkwva-xopliewgt gel (would try formulary alternative), levothyroxine, metformin [...] low flow heart failure noted by her manager underwriting during last follow-up August 2020. Per addiction [...] No recent data Symptom note: I checked [place] PDMP database for this patient the day [...] on file Legal Sex Female 7:52 AM [employer] Gender Identity Not on file Sexual Orientation [...] Height 152.4 cm (5') 06/04/2020 1:23 AM [employer] Body Mass Index 30.15 06/04/2020 1:23 AM OPER[employer] Plan of Treatment Health Maintenance Due Date Last Done Comments RSV vaccine for adults or pr egnancy (1 - Risk 60-74 years 1-dose series) 2022 Medical Devices Implanted Type Area Special Education Teachers Device Identifier Shelf Expiration Date Model / Serial / Lot [id number] one Matrix 6cc Hema Dbf Putty Dbm Implanted:Qty: 1 on 03/17/2020 by Rose Galindo MD at [facility] Explanted:at [facility] (Quantity not on file) N/A: Spine Med[employer]onic Spine/Ortho 12/12/2021 [id number] / [id number] / Screw Zevo Shon Sd [id number] Implanted:Qty: 1 on 03/17/2020 by Rose Glaindo MD at [facility] N/A: Spine [id number] / / Description:SCREW ZEVO SHON S D [id number] Matrix 3cc [place] Dbf Putty Dbm Implanted:Qty: 1 on 03/17/2020 by Rose Galindo MD at [facility] Explanted:at [facility] (Quantity not on file) N/A: Spine [employer] Spine/Ortho 11/11/2021 [id number] / [id number] / Screw Cerv 3.5x12mm Infinity Multi Axial - [id number] Implanted:Qty: 4 on 03/17/2020 by Rose Galindo MD at [facility] N/A: Spine Med[employer]onic Spine/Ortho [id number] / / Screw Cerv 3.5x14mm Infinity Multi Axial - [id number] Implanted:Qty: 2 on 03/17/2020 by Rose Galindo MD at [facility] N/A: Spine [employer]onic Spine/Ortho [id number] / / Ren Cerv 3.5x40mm Infinity Pre-Cut - [id number] Implanted:Qty: 2 on 03/17/2020 by Rose Galindo MD at [facility] N/A: Spine [employer]onic Spine/Ortho [id number] / / Set Screw Cerv Infinity Std - [id number] Implanted:Qty: 6 on 03/17/2020 by Rose Galindo MD at [facility] N/A: Spine [employer] Spine/Ortho [id number]# / / Spacer Cerv Md 6mm Endoskeleton Tc - [id number] Implanted:Qty: 2 on 03/17/2020 by Rose Galindo MD at [facility] N/A: Spine [employer]onic Spine/Ortho [id number] / / Screw Cerv Ant 4x15mm Zevo Variable Slf Drilling - [id number] Implanted:Qty: 5 on 03/17/2020 by Rose Galindo MD at [facility] N/A: Spine Med[employer]onic Spine/Ortho [id number] / / Plate Zevo 31mm 2 Lvl Implanted:Qty: 1 on 03/17/2020 by Rose Galindo MD at [facility] N/A: Spine [id number] / / Description:PLATE ZEVO 31MM 2 LVL Insurance MEDICARE PART B HB ONLY MEDICARE PB ONLY MEDICARE PART A HB ONLY Member Subscriber Plan / Payer (Ef fective 2015-Present) Name:Pedrito Lanier Member ID:[id number] Relation to Subscriber:Self Name:Pedrito Lanier Subscriber ID:[id number] Payer ID:Not on file Group ID:Not on file Type:Not on file Address: ATTN: CLAIMS [address] [place], [place] [address] [place] [address] MEDICAID Advance Directives Documents on File Type Date Recorded Patient Superintendent Maintenance Expl anation Healthcare Directive 11/09/2022 023 Healthcare [...] 9:36 AM 07/05/2017 12:08 PM Care Teams Architectural Engineering Teacher Relationship Specialty Start Date End Date Christiano Bess MD [address] [facility] [place] [address] PCP - General Family Practice 12/27/23 Fernie Garcia MD [address] [address] [place] [address] Psychiatry Addiction Medicine - Preventive Medicine 10/26/22
--- OUTSIDE RECORDS SUMMARY | 2024-09-02 21:07 | XMS_ITS | Continuity of Care Document ---
Author Organization [facility] Address [address] [place] [address] Phone Care Team Providers Care Generator Assembler Name Role Phone Georgi Story Unavailable Unavailable [...] Copied on Encounter [facility] [place], [address], [place], [id number], [place] tel:[phone] [facility] No Information 0 Deisi Laureano. [facility] [place], [address] [place] [address], [address], [place], [address], [place]. tel:[phone] Referring Provider: Rose Galindo, [facility] [address], [place], [address]. tel:[phone] [facility], [address], [place], [place], [id number], [place] tel:[phone] [facility] No Information 0 Mateo Hernandezman. [facility], [address], [place], [address], [place]. tel:[phone] Referring Provider: Rose Galindo, [facility] [address], [place], [address]. tel:[phone] Family History Family Member Type Diagnosis Age At Onset No Information Payers Payer name Insurance type Covered republican ID Michaela stone(s) Medicare MB [id number] Medical Assistance [facility] [id number] Social History Type Description Quantity Date Captured [...]
[2024-09-02 21:12] LABS: Appearance Urine Clear (Clear); Bilirubin Urine Negative (Negative); Blood Urine 2+ (Negative); Glucose Urine Trace (Negative); Ketones Urine Negative (Negative); Leukocyte Esterase Urine Negative (Negative); Nitrite Urine Negative (Negative); Protein Urine 2+ (Negative); Urobilinogen Urine 0.2 (0.2-1.0)
[2024-09-02 21:14] LABS: Procalcitonin* 1.35 ng/mL (<0.50)
[2024-09-02 21:15] LABS: Color Urine Yellow (Yellow)
[2024-09-02 21:22] LABS: Amphetamine Screen Urine POSITIVE (Negative); Benzodiazepines Screen Urine Negative (Negative); Cannabinoid Screen Urine Negative (Negative); Cocaine Screen Urine Negative (Negative); Methamphetamines Screen Urine POSITIVE (Negative); Opiate Screen Urine Negative (Negative); Phencyclidine Screen Urine Negative (Negative); Tricyclic Antidepressant Urine Negative (Negative)
[2024-09-02 21:23] LABS: Barbiturate Screen Urine Negative (Negative); Methadone Screen Urine POSITIVE (Negative); Oxycodone Screen Urine Negative (Negative)
[2024-09-02 21:23] LABS: Troponin I* 0.13 ng/mL (0.01-0.04)
[2024-09-02 21:23] LABS: PCR FLU A Negative PCR FLU A (Negative); PCR FLU B Negative PCR FLU B (Negative); PCR RSV Negative PCR RSV (Negative); SARS PCR* Negative SARS-CoV-2 (Negative)
[2024-09-02] MEDS: ERTAPENEM 1 GM in 0.9 % SODIUM CHLORIDE Mini-bag 100 ML IVPB (21:29)
[2024-09-02] MEDS: 0.9 % SODIUM CHLORIDE 250 ml 250 ML IV (21:29)
[2024-09-02 21:40] LABS: Aspartate Amino Transferase* 1698 U/L (12-35)
[2024-09-02 21:41] LABS: Erythrocyte SedimentationRate* < 2 mm/hr (2-20)
[2024-09-02 21:46] LABS: Bacteria Urine Few; Squamous Epithelial Cell Urine Few (None-Few)
--- NOTE | 2024-09-02 21:46 | CRLHL7_ITS ---
For Patients: As a result of the Century Cures Act, medical imaging exams and procedure reports are released immediately into your electronic medical record. You may view this report before your referring provider. If you have questions, please contact your health care provider. INDICATION: Elevated liver enzymes, abdominal pain. TECHNIQUE: CT abdomen and pelvis without contrast. COMPARISON: None. FINDINGS: Evaluation of the upper abdomen is limited by patient motion. Within these limits: Lower chest: Cardiomegaly. Mild subsegmental atelectasis. Liver: Limited evaluation in the absence of IV contrast. Within these limits: Unremarkable hepatic parenchymal attenuation. No suspicious focal lesions. Gallbladder and bile ducts: No stones or inflammation. No biliary dilatation. Pancreas: Unremarkable. No mass or inflammation. Spleen: Normal in size. No masses. Adrenal glands: Normal in size. No nodules. Kidneys: Normal in size. Left renal cysts. No suspicious masses, stones, or hydronephrosis. GI tract: Small hiatal hernia. Normal in caliber. No sign of mass or inflammation. No definite secondary signs of appendicitis. Vasculature: Abdominal aorta is normal in caliber. Lymph nodes: No lymphadenopathy. Peritoneum/Abdominal Wall: Anasarca. No pneumoperitoneum. Trace peritoneal free fluid seen most prominently in the dependent pelvis. Pelvis: Bladder is unremarkable. Reproductive organs are unremarkable. Bones: No acute or suspicious lesions. IMPRESSION: Limited evaluation given the absence of IV contrast and patient motion in the upper abdomen. Within these limits: No definite acute or suspicious findings. Please note that all CT scans at this facility use dose modulation, iterative reconstruction, and/or weight-based dosing when appropriate to reduce radiation dose to as low as reasonably achievable. Dictated by Brian Small MD @ 09/02/2024 10:36:58 PM (Electronically Signed)
--- NOTE | 2024-09-02 22:17 | CRLHL7_ITS ---
For Patients: As a result of the Century Cures Act, medical imaging exams and procedure reports are released immediately into your electronic medical record. You may view this report before your referring provider. If you have questions, please contact your health care provider. Indication: Fall, concern for bleed Technique: Noncontrast CT through the head with multiplanar reformats Comparison: CT head performed 02/26/2020 Findings: Portions of the anatomy are obscured from streak artifact. Additionally, the presence of previously administered IV contrast reduces sensitivity for pathologic detection, particularly for subarachnoid hemorrhage. Brain: No acute hemorrhage. No acute infarct. No significant mass effect or midline shift. No gross evidence of a mass lesion or cerebral edema. Mild chronic microvascular ischemic disease. Chronic appearing left occipital hypodensity. Ventricles: No acute abnormality appreciated. Orbits, sinuses, mastoids: No acute abnormality appreciated. Mild sinus disease. Calvarium and soft tissues: No acute abnormality appreciated. Impression: Examination is degraded by streak artifact as well as previously administered intravenous contrast. Allowing for these limitations, no acute abnormality is appreciated. Please note that all CT scans at this facility use dose modulation, iterative reconstruction, and/or weight-based dosing when appropriate to reduce radiation dose to as low as reasonably achievable. Dictated by Kyle Ken MD @ 09/02/2024 10:43:10 PM (Electronically Signed)
[2024-09-02 22:28] LABS: Partial Thromboplastin Time* 28 Seconds (23-33)
[2024-09-02] MEDS: MORPHINE 4 MG/ML INJ IVP (22:33)
[2024-09-02 22:47] LABS: Troponin I* 0.13 ng/mL (0.01-0.04)
[2024-09-02] MEDS: HEPARIN 25,000 UNIT/500 ML BAG 30 UNIT IV (23:09)
[2024-09-02] MEDS: HEPARIN 5,000 UNIT/0.5 ML INJ 7300 UNIT IVP (23:09)
== END 2024-09-02 23:54 | disposition short-term general hospital (02) ==
PROVIDERS: Family Medicine; Emergency Provider Family Medicine; PCP Surgery
DX: I70.229 Atherosclerosis of native arteries of extremities with rest pain, unspecified extremity (principal); I50.9 Heart failure, unspecified; R79.89 Other specified abnormal findings of blood chemistry; F15.90 Other stimulant use, unspecified, uncomplicated
CPT/HCPCS: 36415; 70450; 71045; 71275; 74176; 80048; 80076; 80143; 80179; 80306; 81001; 82077; 82565; 82803; 82962; 83605; 83690; 83735; 83880; 84145; 84484; 85025; 85379; 85610; 85651; 85730; 86140; 87040; 87086; 87631; 93005; 94761; 99285; 99291; J1335; J1644; J1940; J2270; J7050; Q9967

== ENCOUNTER 2024-09-24 01:07 | Outpatient (CLI) | payer MEDICARE, MEDICAID, SELFPAY | END 2024-09-24 01:08 | disposition home or self-care (01) | LOC: AMB 09-26 11:42 | PROVIDERS: PCP Surgery; Visit Provider Family Medicine | DX: M25.552 Pain in left hip (principal); R10.9 Unspecified abdominal pain; R06.02 Shortness of breath | CPT/HCPCS: A0425; A0433 ==

== ENCOUNTER 2025-04-19 14:41 | Outpatient (CLI) | payer MEDICARE, MEDICAID, SELFPAY | END 2025-04-19 14:42 | disposition home or self-care (01) | LOC: AMB 04-23 11:15 | PROVIDERS: PCP Surgery; Visit Provider Student in an Organized Health Care Education/Training Program | DX: R53.1 Weakness (principal) | CPT/HCPCS: A0998 ==